=== PATIENT | male | born 1955 | race Caucasian/White ===

== ENCOUNTER 2024-05-04 07:32 | Emergency (ER) | payer MEDICARE ==
[~2024-05-04] VITALS: Ht 177.8 cm; Wt 88.4 kg
[2024-05-04 07:56] VITALS: TEMP 97.5
[2024-05-04] MEDS: cefTRIAXone SOD 1,000 MG VL IM ONE (08:17)
[2024-05-04] MEDS: ACETAMINOPHEN 500 MG TAB PO ONE (08:17)
[2024-05-04] MEDS: LISINOPRIL 20 MG TAB PO ONE (08:42)
[2024-05-04 09:08] VITALS: BP 160/85; PULSE 62; RESP 17; O2SAT 99
[2024-05-04] MEDS ORDERED: LISI20TA56 PO (09:13)
[2024-05-04] MEDS ORDERED: ACET-1080 PO (09:13)
[2024-05-04] MEDS ORDERED: CLIN1CAP70 PO (09:13)
[2024-05-05] MEDS ORDERED: LACT10SO3 PO (07:20)
[2024-05-05] MEDS ORDERED: AMOX875T3 PO (07:20)
== END 2024-05-04 09:15 | disposition home or self-care (01) ==
LOC: ER 07:32
DX: K04.7 Periapical abscess without sinus (principal); I10 Essential (primary) hypertension; Z79.899 Other long term (current) drug therapy
CPT/HCPCS: 96372; 99283; J0696

== ENCOUNTER 2024-05-05 06:11 | Emergency (ER) | payer MEDICARE ==
[~2024-05-05] VITALS: Ht 177.8 cm; Wt 89.8 kg
[~2024-05-05 06:11] MED LIST: ACET-1080 PO; CLIN1CAP70 PO; LISI20TA56 PO
--- NOTE | 2024-05-05 07:00 | ED.PDOC ---
History of Present Illness HPI Comments A 69 YEAR OLD MALE PRESENTS TO THE ED WITH COMPLAINT OF REQUEST FOR MEDICATION CHANGE AND CONSTIPATION. PATIENT STATES HE HAS BEEN EXPERIENCING DENTAL PAIN FOR THE PAST SEVERAL DAYS AND CAME TO THIS ED YESTERDAY FOR THIS COMPLAINT WHERE HE WAS GIVEN A ROCEPHIN INJECTION AND WAS PRESCRIBED CLINDAMYCIN. PATIENT REPORTS HE TOOK 1 DOSE OF THE CLINDAMYCIN AND STATES HE DOES NOT THINK IT IS WORKING/HELPING WITH INFECTION AND WOULD NOW LIKE TO BE PRESCRIBED A DIFFERENT ANTIBIOTIC. PATIENT NOTES HE HAS ALSO BEEN EXPERIENCING MILD CONSTIPATION FOR THE PAST 2 DAYS. PATIENT DENIES FEVER, CHILLS, SHORTNESS OF BREATH, CHEST PAIN, ABDOMINAL PAIN, NAUSEA, VOMITING, HEADACHE, OR OTHER COMPLAINTS. NO OTHER SYMPTOMS OR MODIFYING FACTORS AT THIS TIME. PATIENT IS ALERT, ORIENTED X 4, AND HAS STEADY GAIT. Chief Complaint: Constipation Time Seen by MD: 06:38 Primary Care Provider: none Reviewed Notes: Nurses Notes, Medications, Allergies Allergies: Coded Allergies: NO KNOWN ALLERGIES (Unverified , 05/04/24) Home Meds Active Scripts Lactulose (Lactulose) 10 Gm/15 Ml Marilee, 30 ML PO BID PRN, #280 ML Prov:PABLO MURPHY 05/05/24 Amoxicillin Trihydrate (Amoxicillin) 875 Mg Tab, 1 TAB PO BID, #20 TAB Prov:PABLO MURPHY 05/05/24 Lisinopril (Lisinopril) 20 Mg Tab, 1 TAB PO DAILY, #30 TAB Prov:PABLO MURPHY 05/04/24 Acetaminophen (Tylenol 8 Hour Arthritis) 650 Mg Tab, 650 MG PO TID, #30 TAB Prov:PABLO MURPHY 05/04/24 Clindamycin Hcl (Clindamycin Hcl) 300 Mg Cap, 1 CAP PO TID, #30 CAP Prov:PABLO MURPHY 05/04/24 Information Source: Patient Mode of Arrival: Ambulatory Severity: Moderate Timing: Days Duration: Since onset, Days Prehospital treatment: None Medication Refill: For: Other (REQUEST FOR MEDICATION CHANGE AND CONSTIPATION) Past Medical History PAST MEDICAL HISTORY: HTN Surgical History: Denies all surgeries Family History Family History: Reviewed,noncontributory to illness Social History Smoker: Non-Smoker Alcohol: Denies ETOH Use Drugs: Denies Drug Use Lives In: Home Constitutional: denies: chills, diaphoresis, fatigue, fever, malaise, sweats, weakness, others EENTM: reports: mouth pain (DENTAL PAIN); denies: blurred vision, double vision, ear bleeding, ear discharge, ear drainage, ear pain, ear ringing, eye pain, eye redness, hearing loss, mouth swelling, nasal discharge, nose bleeding, nose congestion, nose pain, photophobia, tearing, throat pain, throat swelling, voice changes, others Respiratory: denies: cough, hemoptysis, orthopnea, SOB at rest, shortness of breath, SOB with excertion, stridor, wheezing, others Cardiovascular: denies: chest pain, dizzy spells, diaphoresis, Dyspnea on exertion, edema, irregular heart beat, left arm pain, lightheadedness, palpitati ons, PND, syncope, others Gastrointestinal: reports: constipated; denies: abdomen distended, abdominal pain, blood streaked bowels, diarrhea, dysphagia, difficulty swallowing, hematemesis, melena, nausea, poor appetite, poor fluid intake, rectal bleeding, rectal pain, vomiting, others Genitourinary: denies: burning, dysuria, flank pain, frequency, hematuria, incontinence, penile discharge, penile sore, pain, testicle pain, testicle swelling, urgency, others Neurological: denies: dizziness, fainting, headache, left sided numbness, left sided weakness, numbness, paresthesia, pre-existing deficit, right sided numbness, right sided weakness, seizure, speech problems, tingling, tremors, weakness, others Musculoskeletal: denies: back pain, gout, joint pain, joint swelling, muscle pa in, muscle stiffness, neck pain, others Integumetry: denies: bruises, change in color, change in hair/nails, dryness, laceration, lesions, lumps, rash, wounds, others Allergic/Immunocompromised: denies: Difficulty Healing, Frequent Infections, Hives, Itching, others Hematologic/Lymphatic: denies: anemia, blood clots, easy bleeding, easy bruising, swollen glands, others Endocrine: denies: excessive hunger, excessive sweating, excessive thirst, excessive urination, flushing, intolerance to cold, intolerance to heat, unexplained weight gain, unexplained weight loss, others Psychiatric: denies: anxiety, bipolar disorder, depression, hopeless, panic disorder, schizophrenia, sleepless, suicidal, others All Other Systems: Reviewed and Negative Physical Exam General Appearance: No Apparent Distress, Normal HEENT: Normal ENT Inspection, PERRL/EOMI, Pharynx Normal, TMs Normal, Other (ERYTHEMA AND SWELLING ON RIGHT UPPER GUM AROUND TOOTH, DENTAL DECAY AND INFEC TION, NO FACIAL SWELLING. ) Neck: Full Range of Motion, Non-Tender, Normal, Normal Inspection Respiratory: Chest Non-Tender, Lungs Clear, No Accessory Muscle Use, No Respiratory Distress, Normal Breath Sounds Cardiovascular: No Edema, No JVD, No Murmur, No Gallop, Normal Peripheral Pulses, Regular Rate/Rhythm Breast Exam: Deferred Gastrointestinal: No Organomegaly, Non Tender, No Pulsatile Mass, Normal Bowel Sounds, Soft Genitalia: Deferred Pelvic: Deferred Rectal: Deferred Extremities: No calf tenderness, Normal capillary refill, Normal inspection, Normal range of motion, Non-tender, No pedal edema Musculoskeletal : Apperance: Normal Neurologic: Alert, consumer banker II-XII nml as Tested, No Motor Deficits, Normal Affect, Normal Mood, No Sensory Deficits Cerebellar Function: Normal Reflexes: Normal Skin: Dry, Normal Color, Warm Peripheral Pulses: 2+ carotid (R), 2+ carotid (L) Lymphatic: No Adenopathy Was a procedure done? Was a procedure done?: No Differential Dx Considerations may include: DENTAL INFECTION, DENTAL PAIN, DENTAL CARIES, DENTAL ABSCESS, GINGIVITIS, CONSTIPATION, FECAL IMPACTION X-Ray, Labs, Meds, VS Vital Signs Date Time Temp Pulse Resp B/P (MAP) Pulse Ox O2 Delivery O2 Flow Rate FiO2 05/05/24 07:23 Room Air* 0 21 05/05/24 06:22 97.8 79 16 173/99 (123) 95 Current Medications Medications (Trade) Dose Ordered Sig/Valeria Route Start Time Stop Time Status Last Admin Lactulose 60 ml ONCE ONCE PO 05/05/24 07:30 05/05/24 07:31 05/05/24 07:21 ABDOMINAL RADIOGRAPH Indication:CONSTIPATION Technique: 2 frontal views of the abdomen were obtained. Comparison: None FINDINGS: Lines and tubes: None There is a nonobstructive bowel gas pattern. Diffuse stool throughout the colon. No supine radiographic evidence of pneumoperitoneum. Bony structures unremarkable. IMPRESSION: 1. Nonobstructive bowel gas pattern. Diffuse stool throughout the colon. ATED BY: DYAN MONTES MD DICTATED DATE/TIME: 05/05/24725 SIGNED BY: DYAN MONTES MD SIGNED DATE/TIME: 05/05/24725 CC: X-Ray, Labs, Meds, VS Comment TREATMENT: LACTULOSE 60ML PO Images Reviewed?: Images reviewed and evaluated by me Time of 1ST Reevaluation: 07:40 Reevaluation 1ST: Improved Patient Education/Counseling: Diagnosis, Treatment, Need For Follow Up Family Education/Counseling: Diagnosis, Treatment, Need For Follow Up Medical Screening: No EMC Exist At This Time Departure 1 Departure Time of Disposition: 07:40 Impression: Primary Impression: Constipation Qualified Codes: K59.00 - Constipation, unspecified Additional Impression: Dental infection Disposition: HOME / SELF CARE / HOMELESS Condition: Stable Additional Instructions: FOLLOW-UP WITH PCP IN 1 TO 2 DAYS. TAKE MEDICATIONS PRESCRIBED. RETURN TO ED FOR ANY NEW OR WORSENING SYMPTOMS. e-Prescriptions Lactulose (Lactulose) 10 Gm/15 Ml Marilee 30 ML PO BID PRN, #280 ML Prov: PABLO MURPHY 05/05/24 Amoxicillin Trihydrate (Amoxicillin) 875 Mg Tab 1 TAB PO BID, #20 TAB Prov: PABLO MURPHY 05/05/24 Discharged With: Self Critical Care Note Critical Care Time?: No Stability Stability form required: No I personally scribed for PABLO MURPHY ([email or web address]) on 05/05/24 at 07:00. Electronically submitted by Humble Varela ([email or web address]). I personally scribed for PABLO MURPHY ([email or web address]) on 05/05/24 at 07:30. Electronically submitted by Humble Varela ([email or web address]). PABLO MURPHY May 05, 2024 07:00
[2024-05-05] MEDS ORDERED: AMOX875T3 PO (07:20)
[2024-05-05] MEDS ORDERED: LACT10SO3 PO (07:20)
[2024-05-05] MEDS: LACTULOSE 20Gm/30ML SOLN PO ONE (07:21)
--- NOTE | 2024-05-05 07:29 | DVH ---
ABDOMINAL RADIOGRAPH Indication:CONSTIPATION Technique: 2 frontal views of the abdomen were obtained. Comparison: None FINDINGS: Lines and tubes: None There is a nonobstructive bowel gas pattern. Diffuse stool throughout the colon. No supine radiograph ic evidence of pneumoperitoneum. Bony structures unremarkable. IMPRESSION: 1. Nonobstructive bowel gas pattern. Diffuse stool throughout the colon.
[2024-05-05 07:30] VITALS: BP 151/85; PULSE 94; RESP 16; TEMP 98.6; O2SAT 95
== END 2024-05-05 07:30 | disposition home or self-care (01) ==
LOC: ER 06:11
DX: K59.00 Constipation, unspecified (principal); K04.7 Periapical abscess without sinus; I10 Essential (primary) hypertension; Z79.899 Other long term (current) drug therapy
CPT/HCPCS: 74018

== ENCOUNTER → 2024-08-17 | Outpatient (CLI) | payer MEDICARE ==
[~2024-08-17] MED LIST changes: +AMOX875T3 PO; +LACT10SO3 PO
[2024-08-17 14:06] LABS: Urine Bacteria None Seen /hpf (None Seen)
[2024-08-17 14:23] LABS: Basophils # (auto) 0 10 ^3/uL (0-0.2); Basophils % (auto) 0.7 % (0.0-2.0); Eosinophils # (auto) 0.1 10 ^3/uL (0-0.8); Hematocrit 48.6 % (41.0-53.0); Hemoglobin 16.4 g/dL (13.5-17.5); Lymphocytes # (auto) 1.1 10 ^3/uL (0.4-5.4); Lymphocytes % (auto) 21.7 % (10.0-50.0); Mean Corpuscular Hemoglobin 32.8 pg (28.0-32.0); Mean Corpuscular Hgb Conc. 33.7 g/dL (32.0-36.0); Mean Corpuscular Volume 97.3 fL (80.0-100.0); Monocytes # (auto) 0.3 10 ^3/uL (0-1.3); Monocytes % (auto) 5.4 % (0.0-12.0); Neutrophils # (auto) 3.4 10 ^3/uL (1.6-8.6); Neutrophils % (auto) 69.2 % (37.0-80.0); Nucleated Red Blood Cells % 0.2 %; Platelet Count (auto) 206 10^3/uL (140-450); Red Blood Cells 4.99 10^6/uL (4.5-5.90); Red Cell Distribution Width 13.5 % (11.8-14.3); White Blood Cell 4.8 10^3/uL (4.4-10.8)
[2024-08-17 14:25] LABS: Urine Blood 2+ /uL (Negative); Urine Clarity Clear (Clear); Urine Color Yellow (Yellow); Urine Mucus FEW (None Seen); Urine Protein, UAD TRACE (Negative); Urine Specific Gravity 1.021 (1.001-1.035); Urine Squamous Epithelial Cell FEW /hpf (<5); Urine Urobilinogen Normal (Negative); Urine WBC 1 /HPF (0-3); Urine pH 6.5 (5.0-9.0)
[2024-08-17 14:38] LABS: Prostate Specific Antigen 0.49 ng/mL (0.0-4.0)
[2024-08-17 14:39] LABS: Alanine Aminotransferase 25 U/L (7-40); Alkaline Phosphatase 90 U/L (46-116); Anion Gap 5 (5-15); Aspartate Aminotransferase 24 U/L (13-40); BUN/Creatinine Ratio 11.6 (10.0-20.0); Bilirubin, Total 0.8 mg/dL (0.2-1.0); Blood Urea Nitrogen 13 mg/dL (9-23); Calcium 10.4 mg/dL (8.7-10.4); Carbon Dioxide 30 mmol/L (20-31); Chloride 106 mmol/L (98-107); HDL Cholesterol 58 mg/dL (40-59); Potassium 4.4 mmol/L (3.5-5.1); Sodium 141 mmol/L (136-145); Total Protein 7.5 g/dL (5.7-8.2); Triglycerides 88 mg/dL (< 150)
[2024-08-17 14:43] LABS: Free T3 3.14 pg/mL (2.3-4.2)
[2024-08-17 15:00] LABS: Albumin 4.9 g/dL (3.2-4.8); Cholesterol 236 mg/dL (< 200); Glucose 108 mg/dL (74-106); LDL Cholesterol 168 mg/dL (< 100)
== END | disposition home or self-care (01) ==
LOC: LAB 13:41
PROVIDERS: ATTEND Internal Medicine
DX: I10 Essential (primary) hypertension (principal); R35.1 Nocturia; Z76.89 Persons encountering health services in other specified circumstances; Z85.46 Personal history of malignant neoplasm of prostate; Z79.899 Other long term (current) drug therapy
CPT/HCPCS: 36415; 80053; 80061; 81001; 83036; 84153; 84443; 84481; 85025